=== PATIENT | male | born 2000 | race Caucasian/White ===

== ENCOUNTER 2024-03-27 21:52 | Emergency (ER) | payer BC, OTHER ==
[2024-03-27] MEDS ORDERED: Ondansetron ODT 4 MG TAB ONE (22:15)
[2024-03-27] MEDS ORDERED: Sodium Chloride 0.9% 1,000 ML ONE (22:38)
[2024-03-27 22:49] LABS: SARS-CoV-2 E Target Negative; SARS-CoV-2 N2 Target Negative; SARS-CoV-2 NAA Rapid Test Not Detected (NotDetected); SARS-CoV-2 RdRP gene Negative
[2024-03-27 23:36] LABS: Hematocrit 41.9 % (42.0-52.0); Hemoglobin 13.3 g/dL (14.0-18.0); Mean Corpuscular HGB CONC 31.7 g/dL (32.0-36.0); Mean Corpuscular Volume 88.2 fl (78.0-98.0); Mean Platelet Volume 7.1 fL (7.4-10.4); Platelet Count 160 10x3/uL (130-400); RBC Distribution Width 13.8 % (11.5-14.5); Red Blood Cell (RBC) Count 4.75 mill/uL (4.70-6.10); White Blood Cell (WBC) Count 3.5 10x3/uL (4.8-10.8)
[2024-03-27 23:51] LABS: Band 4 % (5-11); Eosinophils 2 % (0-10); Lymphocytes 19 % (21-51); MDiff Complete? YES; Monocytes 3 % (0-10); Neutrophil 72 % (42-75); Platelet Adequacy Comment Appears Adequate
[2024-03-27 23:55] LABS: ALT (SGPT) 24 U/L (8-55); AST (SGOT) 19 U/L (5-34); Albumin 3.4 g/dL (3.5-5.0); Alkaline Phosphatase 62 U/L (40-110); Anion Gap 15 mmol/L (10-20); BUN (Urea Nitrogen) 14 mg/dL (8.9-20.6); Bilirubin, Total 0.4 mg/dL (0.2-1.2); Calc. Creatinine Clearance 0 mL/min (70-130); Calcium 8.4 mg/dL (7.8-10.44); Carbon Dioxide 23 mmol/L (22-29); Chloride 105 mmol/L (98-107); Estimated GFR 106; Globulin 2.9 g/dL (2.4-3.5); Glucose 112 mg/dL (70-105); Lipase 48 U/L (8-78); Potassium 3.6 mmol/L (3.5-5.1); Protein, Total 6.3 g/dL (6.0-8.3); Sodium 139 mmol/L (136-145)
[2024-03-28] MEDS ORDERED: Promethazine 25 MG TAB ONE (00:28)
== END 2024-03-28 00:45 | disposition home or self-care (01) ==
LOC: MADERS 21:52
DX: K52.9 Noninfective gastroenteritis and colitis, unspecified (principal)
CPT/HCPCS: 80053; 83690; 85025; 87804; 96360; J7030; Q0162; Q0169; U0002

== ENCOUNTER 2024-05-19 15:40 | Emergency (ER) | payer OTHER ==
[2024-05-19] MEDS ORDERED: Acetaminophen 500 MG TAB ONE (16:31)
[2024-05-19] MEDS ORDERED: Sodium Chloride 0.9% 1,000 ML ONE ×2 (16:31→17:42)
== END 2024-05-19 19:23 | disposition home or self-care (01) ==
LOC: MADERS 15:40
DX: M70.42 Prepatellar bursitis, left knee (principal); B34.9 Viral infection, unspecified; F17.290 Nicotine dependence, other tobacco product, uncomplicated
CPT/HCPCS: 71046; 87400; J7030